=== PATIENT | female | born 1950 | race African-American/Black ===

== ENCOUNTER 2023-08-18 19:43 | Emergency (ER) | payer MEDICARE, OTHER | END 2023-08-18 21:44 | disposition home or self-care (01) | LOC: BURERS 19:43 | DX: S60.212A Contusion of left wrist, initial encounter (principal); I10 Essential (primary) hypertension; V89.2XXA Person injured in unspecified motor-vehicle accident, traffic, initial encounter; W22.11XA Striking against or struck by driver side automobile airbag, initial encounter ==